=== PATIENT | female | born 1945 | race Caucasian/White ===

== ENCOUNTER 2024-02-21 08:03 | Day surgery (SDC) | payer OTHER, MEDICAID ==
[~2024-02-21] VITALS: Ht 167.6 cm; Wt 82.6 kg
[2024-02-21] VITALS (8 sets, daily range): BP systolic 121–143; BP diastolic 67–92; PULSE 61–68; RESP 15–20; TEMP 97.7; O2SAT 95–97
[~2024-02-21 08:03] MED LIST: ALBU1AER4 IN; AMLO5CAP2 PO; ATOR40TA52 PO; CETI10CA10 PO; FURO40TA4 PO; GABA-339 PO; IPRAAER6 IN; LORA-622 PO; METO25TA5 PO; MONT-8 PO; PANT40TA2 PO; PERCOT PO; POTA-215 PO; RIVA20TA PO; TIZA4CAP PO
[2024-02-21] MEDS ORDERED: VANCOMYCIN HCL 1000 MG VL ONE (10:50)
[2024-02-21] MEDS ORDERED: fentaNYL CITRATE 100 MCG/2 ML VL ONE (10:50)
[2024-02-21] MEDS ORDERED: MIDAZOLAM HCL 2MG/2ML 2ml VIAL (1mg/ml) ONE (10:51)
[2024-02-21] MEDS ORDERED: LIDOCAINE 2%HCL (LOCAL ANESTH.) INJ 20ML MDV ONE ×2 (10:51→11:09)
[2024-02-21] MEDS ORDERED: VANCOMYCIN 1GM/200ML PREMIX 200 ML IV ONE (10:51)
== END 2024-02-21 14:06 | disposition home or self-care (01) ==
LOC: CATH 08:03
PROVIDERS: ATTEND Internal Medicine
DX: Z45.010 Encounter for checking and testing of cardiac pacemaker pulse generator [battery] (principal); I49.5 Sick sinus syndrome; Z88.0 Allergy status to penicillin; Z88.1 Allergy status to other antibiotic agents; Z88.8 Allergy status to other drugs, medicaments and biological substances
CPT/HCPCS: 33228; C1785; J2250; J3010; J3370; 99152; 99153